=== PATIENT | female | born 1965 | race Caucasian/White ===

== ENCOUNTER 2024-06-18 07:42 | Day surgery (SDC) | payer OTHER ==
[~2024-06-18] VITALS: Ht 154.9 cm; Wt 81.6 kg
[2024-06-18] MEDS ORDERED: MEPERIDINE 100 MG INJ. 100 MG/ML VIAL ONE (07:58)
[2024-06-18] MEDS ORDERED: SIMETHICONE 40 MG/0.6 ML ML ONE (07:58)
[2024-06-18] MEDS ORDERED: MIDAZOLAM HCL 5 MG/5 ML VIAL ONE (07:58)
[2024-06-18] MEDS ORDERED: fentaNYL CITRATE/PF 100 MCG/2 ML AMP ONE (09:26)
[2024-06-18 13:36] VITALS: TEMP 96.6; O2SAT 97
[2024-06-18 15:07] VITALS: BP_SYST 87; PULSE 80; RESP 14
== END 2024-06-18 11:01 | disposition home or self-care (01) ==
LOC: SDS 07:42 → SMU 07:43 → SDS 11:01
PROVIDERS: ATTEND Internal Medicine
DX: Z12.11 Encounter for screening for malignant neoplasm of colon (principal); K64.8 Other hemorrhoids; I10 Essential (primary) hypertension; E78.5 Hyperlipidemia, unspecified; Z88.0 Allergy status to penicillin; Z88.1 Allergy status to other antibiotic agents; Z98.891 History of uterine scar from previous surgery; Z79.899 Other long term (current) drug therapy
CPT/HCPCS: 45378; 99152; G0378; J2250; J3010; J2175